=== PATIENT | male | born 1945 | race Caucasian/White ===

== ENCOUNTER 2018-06-16 08:50 | Emergency (ER) | payer MEDICARE, OTHER ==
[2018-06-16 08:56] VITALS: BMI 24.1
[2018-06-16] MEDS ORDERED: Sodium Chloride 0.9% 1,000 ML IV STA (09:33)
--- NOTE | 2018-06-16 09:37 | ED PDOC ---
HPI: Back Time Seen by Provider: 06/16/18 09:11 Chief Complaint (Nursing): Abdominal Pain Past Medical History Vital Signs: Last Vital Signs Temp 98.3 F 06/16/18 08:56 Pulse 63 06/16/18 08:56 Resp 17 06/16/18 08:56 BP 163/82 H 06/16/18 08:56 Pulse Ox 93 L 06/16/18 08:56 - Medical History PMH: HTN, Parkinson's Disease - Allergies Allergies/Adverse Reactions: Allergies Allergy/AdvReac Type Severity Reaction Status Date / Time No Known Allergies Allergy Unverified 05/28/13 12:38 - ECG O2 Sat by Pulse Oximetry: 93 Disposition - Disposition
--- NOTE | 2018-06-16 09:39 | ED PDOC ---
HPI: Back Time Seen by Provider: 06/16/18 09:11 Chief Complaint (Nursing): Abdominal Pain Chief Complaint (Provider): right flank pain History Per: Patient History/Exam Limitations: no limitations Onset/Duration Of Symptoms: Days Current Symptoms Are (Timing): Still Present Quality Of Discomfort: "Pain" Additional Complaint(s): 72yo male, with history of parkinsons disease, hypertension, comes to ER with complaints of constant flank pain x 2 weeks. Patient was evaluated by Dr. Dubose and informed to come to ER for further evaluation. Patient had an US done on 05/28/18 which indicated right nephrolithiasis. He otherwise denies any fever, chi lls, nausea, vomiting, dysuria or hematuria. No additional complaints. PMD: Dr. Dubose Past Medical History Reviewed: Historical Data, Nursing Documentation, Vital Signs Vital Signs: Last Vital Signs Temp 98.3 F 06/16/18 08:56 Pulse 63 06/16/18 08:56 Resp 17 06/16/18 08:56 BP 163/82 H 06/16/18 08:56 Pulse Ox 93 L 06/16/18 08:56 - Medical History PMH: HTN, Parkinson's Disease - Surgical History Surgical History: Hernia Repair (right inguinal) - Family History Family History: States: No Known Family Hx - Home Medications Home Medications: Ambulatory Orders Medication Instructions Recorded Naproxen [Naprosyn] 500 mg PO BID PRN #15 tablet 06/16/18 - Allergies Allergies/Adverse Reactions: Allergies Allergy/AdvReac Type Severity Reaction Status Date / Time No Known Allergies Allergy Unverified 05/28/13 12:38 Review of Systems ROS Statement: Except As Marked, All Systems Reviewed And Found Negative Constitutional: Negative for: Fever, Chills Gastrointestinal: Positive for: Other (right flank pain). Negative for: Nausea, Vomiting Genitourinary Male: Negative for: Dysuria, Hematuria Physical Exam - Reviewed Nursing Documentation Reviewed: Yes Vital Signs Reviewed: Yes - Physical Exam Appears: Positive for: Non-toxic, No Acute Distress Head Exam: Positive for: ATRAUMATIC, NORMAL INSPECTION, NORMOCEPHALIC Skin: Positive for: Normal Color Eye Exam: Positive for: EOMI, PERRL Neck: Positive for: Normal, Supple Cardiovascular/Chest: Positive for: Regular Rate, Rhythm. Negative for: Tachycardia Respiratory: Positive for: Normal Breath Sounds. Negative for: Respiratory Distress Gastrointestinal/Abdominal: Positive for: Soft, Tenderness (mild right upper and lower quadrants tenderness) Back: Positive for: R CVA Tenderness Extremity: Positive for: Normal ROM Neurological/Psych: Positive for: Awake, Alert, Oriented (x 3) - Laboratory Results Result Diagrams: 06/16/18 10:13 06/16/18 10:13 - ECG O2 Sat by Pulse Oximetry: 93 (RA) Medical Decision Making Medical Decision Makinyo male with flank pain x 2 weeks Plan: -- Labs -- Urinalysis -- CT A/P w/o contrast -- IV Fluids -- Morphine 2mg IV 1200 CT Abdomen/Pelvis FINDINGS: LOWER THORAX: No evidence of acute pathology at the lung bases. Small hiatus hernia is noted LIVER: No evidence of acute pathology or suspicious mass in the liver. GALLBLADDER AND BILE DUCTS: No evidence of radiodense gallstones or acute cholecystitis. PANCREAS: Unremarkable. No gross lesion or ductal dilatation. SPLEEN: Unremarkable. ADRENALS: Unremarkable. No mass. KIDNEYS AND URETERS: There is 5 millimeter nonobstructing calculus at the midpole of the right kidney. There is 3.6 millimeter nonobstructing calculus at the lower pole of the right kidney. There are punctate calcification at the upper pole of the right kidney likely represent nonobstructing calculi. There is 3 millimeter nonobstructing calculus at the mid to upper pole of the left kidney. No evidence of hydronephrosis. The ureters are not dilated. VASCULATURE: Unremarkable. No aortic aneurysm. Foci of atherosclerotic calcification noted in the abdominal aorta and iliac arteries. BOWEL: Few scattered colonic diverticulosis are again noted without evidence of diverticulitis.. No obstruction. No gross mural thickening. APPENDIX: No evidence of appendicitis PERITONEUM: Unremarkable. No free fluid. No free air. LYMPH NODES: Unremarkable. No enlarged lymph nodes. BLADDER: Mild circumferential urinary bladder wall thickening is noted. REPRODUCTIVE: The prostate is moderately enlarged measures 5.5 centimeter in the transverse diameter contains coarse calcification. The seminal vesicles are also mildly to moderately enlarged. BONES: No acute fracture. OTHER FINDINGS: None. IMPRESSION: Nonobstructing right renal calculi with the largest calculus measures 5 millimeter at the midpole of the right kidney. 3 millimeter nonobstructing calculus at the mid to upper pole left kidney. No evidence of hydronephrosis or hydroureter. Moderately enlarged prostate and seminal vesicles. [address] Mills, who states patient to be discharged home and can follow up in office in 2-3 days. Plan for discharge discussed with patient, who is agreeable. Scribe Attestation: Documented by Ana Paula Stahl, acting as a scribe for Shayna Zambrano MD. Provider Scribe Attestation: All medical record entries made by the Scribe were at my direction and personally dictated by me. I have reviewed the chart and agree that the record accurately reflects my personal performance of the history, physical exam, medical decision making, and the department course for this patient. I have also personally directed, reviewed, and agree with the discharge instructions and disposition. Disposition - Clinical Impression Clinical Impression: Flank pain, Nephrolithiasis - Disposition Referrals: Mika Dubose MD [Staff Provider] - Disposition: Routine/Home Disposition Time: 12:30 Condition: STABLE Prescriptions: Naproxen [Naprosyn] 500 mg PO BID PRN #15 tablet PRN Reason: Pain, Moderate (4-7) Instructions: Kidney Stones in Adults, Kidney Stone Diet Forms: [employer] (Mongolian) Print Language: DOMINICAN
[2018-06-16] MEDS ORDERED: Morphine 4 MG/ML VIAL ONE (10:26)
[2018-06-16 10:40] LABS: BASO % 0.8 % (0.0-2.0); EOS # 0.3 K/uL (0.0-0.7); EOS % 5.9 % (0.0-4.0); HEMOGLOBIN 12.9 g/dL (12.0-18.0); LYMPH # 1.3 K/uL (1.0-4.3); LYMPH % 27.3 % (20.0-40.0); MEAN CELL VOLUME 93.9 fl (80.0-94.0); MEAN CORPUSCULAR HEMOGLOBIN 30.9 pg (27.0-31.0); MEAN CORPUSCULAR HGB CONC 32.9 g/dL (33.0-37.0); MONO # 0.4 K/uL (0.0-0.8); MONO % 8.6 % (0.0-10.0); NEUT # 2.8 K/uL (1.8-7.0); NEUT % 57.4 % (50.0-75.0); NRBC % 0.1 % (0.0-0.0); RBC 4.18 Mil/uL (4.40-5.90); RED CELL DISTRIBUTION WIDTH 13.8 % (11.5-14.5); WHITE BLOOD COUNT 4.8 K/uL (4.8-10.8)
[2018-06-16 10:44] LABS: BLOOD UREA NITROGEN 19 mg/dl (9-20); CALCIUM 9.6 mg/dL (8.4-10.2); GFR NON-AFRICAN AMERICAN > 60
[2018-06-16 10:45] LABS: PROTHROMBIN TIME 11.5 Seconds (9.8-13.1)
--- NOTE | 2018-06-16 10:46 | CT ---
Date of service: 06/16/2018 PROCEDURE: CT Abdomen and Pelvis without intravenous contrast HISTORY: R flank pain COMPARISON: Comparison is made with the previous study dated 05/11/2013 TECHNIQUE: Axial and reformatted coronal and sagittal CT images of the abdomen and pelvis were obtained without IV or oral contrast administration.. Contrast dose: 0 Radiation dose: Total exam DLP = 276.05 mGy-cm. This CT exam was performed using one or more of the following dose reduction techniques: Automated exposure control, adjustment of the mA and/or kV according to patient size, and/or use of iterative reconstruction technique. FINDINGS: LOWER THORAX: No evidence of acute pathology at the lung bases. Small hiatus hernia is noted LIVER: No evidence of acute pathology or suspicious mass in the liver. GALLBLADDER AND BILE DUCTS: No evidence of radiodense gallstones or acute cholecystitis. PANCREAS: Unremarkable. No gross lesion or ductal dilatation. SPLEEN: Unremarkable. ADRENALS: Unremarkable. No mass. KIDNEYS AND URETERS: There is 5 millimeter nonobstructing calculus at the midpole of the right kidney. There is 3.6 millimeter nonobstructing calculus at the lower pole of the right kidney. There are punctate calcification at the upper pole of the right kidney likely represent nonobstructing calculi. There is 3 millimeter nonobstructing calculus at the mid to upper pole of the left kidney. No evidence of hydronephrosis. The ureters are not dilated. VASCULATURE: Unremarkable. No aortic aneurysm. Foci of atherosclerotic calcification noted in the abdominal aorta and iliac arteries. BOWEL: Few scattered colonic diverticulosis are again noted without evidence of diverticulitis.. No obstruction. No gross mural thickening. APPENDIX: No evidence of appendicitis PERITONEUM: Unremarkable. No free fluid. No free air. LYMPH NODES: Unremarkable. No enlarged lymph nodes. BLADDER: Mild circumferential urinary bladder wall thickening is noted. REPRODUCTIVE: The prostate is moderately enlarged measures 5.5 centimeter in the transverse diameter contains coarse calcification. The seminal vesicles are also mildly to moderately enlarged. BONES: No acute fracture. OTHER FINDINGS: None. IMPRESSION: Nonobstructing right renal calculi with the largest calculus measures 5 millimeter at the midpole of the right kidney. 3 millimeter nonobstructing calculus at the mid to upper pole left kidney. No evidence of hydronephrosis or hydroureter. Moderately enlarged prostate and seminal vesicles.
[2018-06-16 10:47] LABS: ALB/GLOB RATIO 1.4 (1.0-2.1); ALBUMIN 4.4 g/dL (3.5-5.0); ALT/SGPT 25 U/L (21-72); AST/SGOT 42 U/L (17-59); PARTIAL THROMBOPLASTIN TIME 27.6 Seconds (25.6-37.1)
[2018-06-16 10:49] LABS: URINE BILIRUBIN NEGATIVE (NEGATIVE); URINE BLOOD NEGATIVE (NEGATIVE); URINE CLARITY SLIGHTY-CLOUDY (Clear); URINE COLOR YELLOW (YELLOW); URINE GLUCOSE (UA) NEG (NEGATIVE); URINE LEUKOCYTE ESTERASE NEG Leu/uL (Negative); URINE PROTEIN NEGATIVE (NEGATIVE); URINE UROBILINOGEN 0.2-1.0 mg/dL (0.2-1.0)
[2018-06-16 12:11] VITALS: RESP 19
[2018-06-16 13:27] VITALS: BP 110/78; PULSE 78; TEMP 97.6
[2018-06-16 16:48] VITALS: O2SAT 93
--- NOTE | 2018-06-16 18:37 | CARD ---
APPROVED REPORT Date of service: 06/16/2018 EKG Measurement Heart [id number] <Conclusion> Sinus bradycardia with sinus arrhythmia Otherwise normal ECG
== END 2018-06-16 13:27 | disposition home or self-care (01) ==
LOC: H.ER 08:50
DX: N20.0 Calculus of kidney (principal); R10.9 Unspecified abdominal pain; G20 Parkinson's disease; N40.0 Benign prostatic hyperplasia without lower urinary tract symptoms; I10 Essential (primary) hypertension
CPT/HCPCS: 74176; 80053; 81003; 85025; 85610; 85730; 93005; 96374; 99283; J2270; J7030